=== PATIENT | male | born 1940 | race Caucasian/White ===

== ENCOUNTER → 2023-07-11 09:51 | Outpatient (REF) | payer MEDICARE, OTHER, SELFPAY ==
[2023-07-11 12:21] LABS: C-Reactive Protein < 5.00 mg/L (0.0-10.00)
[2023-07-11 13:06] LABS: Erythrocyte Sed Rate 15 mm/hour (0-20)
== END ==
LOC: HWLAB 09:51
PROVIDERS: ATTENDING PHYSICIAN Family Medicine
DX: M35.3 Polymyalgia rheumatica (principal)
CPT/HCPCS: 36415; 85652; 86140

== ENCOUNTER → 2023-09-12 12:05 | Outpatient (REF) | payer MEDICARE, OTHER, SELFPAY ==
[2023-09-12 15:20] LABS: C-Reactive Protein < 5.00 mg/L (0.0-10.00)
[2023-09-12 16:06] LABS: Erythrocyte Sed Rate 16 mm/hour (0-20)
== END ==
LOC: HWLAB 12:05
PROVIDERS: ATTENDING PHYSICIAN Family Medicine
DX: M35.3 Polymyalgia rheumatica (principal)
CPT/HCPCS: 36415; 85652; 86140

== ENCOUNTER → 2023-10-05 13:46 | Outpatient (REF) | payer MEDICARE, OTHER, SELFPAY | LOC: HWRAD 13:46 | PROVIDERS: ATTENDING PHYSICIAN Internal Medicine Cardiovascular Disease; FAMILY PHYSICIAN Family Medicine | DX: I25.10 Atherosclerotic heart disease of native coronary artery without angina pectoris (principal) | CPT/HCPCS: 93880 ==

== ENCOUNTER → 2023-10-25 06:39 | Day surgery (SDC) | payer MEDICARE, OTHER, SELFPAY | LOC: GI 06:39 | PROVIDERS: ATTENDING PHYSICIAN Specialist | DX: Z12.11 Encounter for screening for malignant neoplasm of colon (principal); D12.2 Benign neoplasm of ascending colon; D12.3 Benign neoplasm of transverse colon; K55.20 Angiodysplasia of colon without hemorrhage; K57.30 Diverticulosis of large intestine without perforation or abscess without bleeding; D12.8 Benign neoplasm of rectum; K64.8 Other hemorrhoids; K56.2 Volvulus; Z86.010 Personal history of colon polyps | CPT/HCPCS: 45380; 88305 ==

== ENCOUNTER → 2023-12-11 07:25 | Outpatient (REF) | payer MEDICARE, OTHER, SELFPAY ==
[2023-12-11 09:41] LABS: ALT (SGPT) 21 U/L (0-50); AST (SGOT) 30 U/L (17-59); Albumin 3.9 g/dl (3.5-5.0); Alkaline Phosphatase 64 U/L (38-126); Blood Urea Nitrogen 22 mg/dl (9-20); Calcium 9.2 mg/dl (8.4-10.2); Carbon Dioxide 27 mmol/L (22-30); Chloride 100 mmol/L (98-107); Glucose 94 mg/dl (70-99); HDL Cholesterol 70 mg/dl; LDL Cholesterol, Calculated 30 mg/dl; Potassium 4.2 mmol/L (3.5-5.1); Sodium 138 mmol/L (135-145); Total Bilirubin 0.7 mg/dl (0.2-1.3); Total Cholesterol 115 mg/dl (50-199); Total Protein 6.4 g/dl (6.3-8.2); Triglyceride 79 mg/dl (10-149); Very Low Density Lipoprotein 15 mg/dl (0-30); eGFR > 60.00
[2023-12-11 09:43] LABS: C-Reactive Protein < 5.00 mg/L (0.0-10.00)
[2023-12-11 10:30] LABS: Erythrocyte Sed Rate 21 mm/hour (0-20)
[2023-12-11 12:10] LABS: Glycohemoglobin (HgbA1c) 5.9 % (4.0-5.6)
== END ==
LOC: HWLAB 07:25
PROVIDERS: ATTENDING PHYSICIAN Family Medicine
DX: E78.2 Mixed hyperlipidemia (principal); M35.3 Polymyalgia rheumatica; R73.01 Impaired fasting glucose
CPT/HCPCS: 36415; 80053; 80061; 83036; 85652; 86140

== ENCOUNTER → 2024-03-19 11:59 | Outpatient (REF) | payer MEDICARE, OTHER, SELFPAY | LOC: CLAB 11:59 | PROVIDERS: ATTENDING PHYSICIAN Nurse Practitioner Family | DX: J02.9 Acute pharyngitis, unspecified (principal) | CPT/HCPCS: 87070 ==

== ENCOUNTER → 2024-04-03 09:14 | Outpatient (REF) | payer MEDICARE, OTHER, SELFPAY | LOC: RCS 09:14 | PROVIDERS: ATTENDING PHYSICIAN Nurse Practitioner; FAMILY PHYSICIAN Family Medicine | DX: I25.10 Atherosclerotic heart disease of native coronary artery without angina pectoris (principal) | CPT/HCPCS: 93225; 93226 ==

== ENCOUNTER → 2024-04-23 06:36 | Outpatient (REF) | payer MEDICARE, OTHER, SELFPAY ==
[2024-04-23 09:46] LABS: % Basophils 0.8 % (0-2); % Eosinophils 1.7 % (0-6); % Immature Granulocytes 0.4 % (0-0.5); % Lymphocytes 19.6 % (20.5-51.1); % Monocytes 12.3 % (1.7-9.3); % Neutrophils 65.2 % (42.2-75.2); Absolute Basophils 0.1 10^3/uL (0-0.2); Absolute Eosinophils 0.1 10^3/uL (0-0.7); Absolute Lymphocytes 1.5 10^3/uL (1.2-3.4); Absolute Neutrophils 5.1 10^3/uL (1.4-6.5); Hematocrit 43.3 % (39.0-52.0); Hemoglobin 14.1 g/dL (13.0-18.0); Mean Corp Hgb Conc. 32.6 g/dL (33.0-37.0); Mean Corpuscular Volume 98.4 fL (80.0-94.0); Mean Platelet Volume 10.3 fL (7.4-10.4); Nucleated Red Blood Cells % 0 % (-); Platelet Count 197 10^3/uL (130-400); Red Cell Dist. Width 13.2 % (11.5-14.5); White Blood Cell Count 7.8 10^3/uL (4.8-10.8)
[2024-04-23 10:05] LABS: ALT (SGPT) 17 U/L (0-50); AST (SGOT) 24 U/L (17-59); Albumin 3.9 g/dl (3.5-5.0); Alkaline Phosphatase 69 U/L (38-126); Blood Urea Nitrogen 26 mg/dl (9-20); Calcium 8.8 mg/dl (8.4-10.2); Carbon Dioxide 24 mmol/L (22-30); Chloride 100 mmol/L (98-107); Glucose 108 mg/dl (70-99); Potassium 4.3 mmol/L (3.5-5.1); Sodium 137 mmol/L (135-145); Total Bilirubin 1.1 mg/dl (0.2-1.3); Total Protein 6.7 g/dl (6.3-8.2); eGFR > 60.00
[2024-04-23 10:50] LABS: Erythrocyte Sed Rate 40 mm/hour (0-20)
== END ==
LOC: HWRCS 06:36
PROVIDERS: ATTENDING PHYSICIAN Nurse Practitioner; FAMILY PHYSICIAN Family Medicine
DX: I25.10 Atherosclerotic heart disease of native coronary artery without angina pectoris (principal); I48.0 Paroxysmal atrial fibrillation; I35.0 Nonrheumatic aortic (valve) stenosis; R53.83 Other fatigue; M35.3 Polymyalgia rheumatica
CPT/HCPCS: 36415; 80053; 84443; 85025; 85652; 86140; 93306

== ENCOUNTER 2024-04-25 06:57 | Day surgery (SDC) | payer MEDICARE, OTHER, SELFPAY ==
--- NOTE | 2024-04-25 09:51 | ITS.CL.CARDI ---
Physician Practice Consultant - Cardioversion
Cardioversion
Procedure Report:
Procedure: CATRACHITA-guided electrical cardioversion
Pre-operative diagnosis: Persistent atrial fibrillation
Post-operative diagnosis: Persistent atrial fibrillation status post DC cardioversion to sinus rhythm
Anesthesia: MAC
Attending Physician: Joe López MD
Procedure Description: The patient was brought to the electrophysiology laboratory in the fasting state. Informed consent was obtained from the patient prior to the start of the procedure. Adherence to anticoagulation was confirmed. Electrodes were
placed on the patient and connected to an external defibrillator. Monitoring of blood pressure, ECG tracings, and pulse oximetry was initiated. The pads were applied to the patient in the anterior and posterior positions. The patient was sedated by
the anesthesiologist. A CATRACHITA (reported separately) was performed prior to the cardioversion. No left atrial or left atrial appendage thrombus was seen. After the CATRACHITA probe was removed, a 200 joule biphasic synchronized shock was delivered to the
patient under MAC anesthesia. Sinus rhythm was successfully restored. The patient recovered uneventfully from MAC anesthesia. There were no immediate post-procedure complications. The patient left the lab in good condition. The attending physician
was present throughout the entire procedure.
Impression: Successful CATRACHITA-guided direct current cardioversion with yazdanism of sinus rhythm after one 200 joule biphasic synchronized shock.
== END 2024-04-25 09:18 | disposition home or self-care (01) ==
LOC: CATH 06:57
PROVIDERS: ATTENDING PHYSICIAN Nuclear Medicine Nuclear Cardiology; FAMILY PHYSICIAN Family Medicine; OTHER PHYSICIAN Nurse Practitioner
DX: I48.19 Other persistent atrial fibrillation (principal); I48.92 Unspecified atrial flutter; I25.10 Atherosclerotic heart disease of native coronary artery without angina pectoris; I10 Essential (primary) hypertension; E78.00 Pure hypercholesterolemia, unspecified; K21.9 Gastro-esophageal reflux disease without esophagitis; Z87.891 Personal history of nicotine dependence; Z79.82 Long term (current) use of aspirin; Z79.01 Long term (current) use of anticoagulants
CPT/HCPCS: 93312; 93320; 93325; 92960; 93005

== ENCOUNTER → 2024-07-09 07:34 | Outpatient (REF) | payer MEDICARE, OTHER, SELFPAY ==
[2024-07-09 10:06] LABS: C-Reactive Protein < 5.00 mg/L (0.0-10.00)
[2024-07-09 11:05] LABS: Erythrocyte Sed Rate 14 mm/hour (0-20)
== END ==
LOC: HWLAB 07:34
PROVIDERS: ATTENDING PHYSICIAN Family Medicine
DX: M35.3 Polymyalgia rheumatica (principal)
CPT/HCPCS: 36415; 85652; 86140

== ENCOUNTER 2024-08-28 12:42 | Emergency (ER) | payer MEDICARE, OTHER, SELFPAY ==
[2024-08-28 12:52] VITALS: BP 128/95
--- NOTE | 2024-08-28 14:39 | ED.MUSCINJ ---
HPI-Injury
General
Chief Complaint: Musculo-Skeletal Complaint
Source: patient
Exam Limitations: none
Time Seen by Provider: 08/28/24 14:25
History of Present Illness-Injury
Initial Injury comments:
84-year-old male [id number] on [place] presents after trip and fall today. Fell on his right shoulder. He did not hit his head. There was no loss of conscious. He denies a headache. He complains only of right shoulder pain. He has a
remote history of rotator cuff repair in the right shoulder. No other complaints at this time
Past History
Past History
ED Past Medical History: GERD and Other (Arthritis)
ED Past Surgical History: Appendectomy, Orthopedic (Arthroscopic knee surgery, right knee replacement, left knee replacement, right shoulder surgery, lumbar spine surgery) and Other (Hernia repair); Negative Cardiac or Cholecystectomy
Social History
Tobacco: Non-smoker
Alcohol: None
Drug: None
Personal:
Living: with family
Employment: Retired
Family History
Family History: Negative Early CAD
Phy Exam
Physical Exam
Physical Exam:
General: Well-appearing male no acute respiratory distress
HEENT: Normocephalic no scalp abrasion or hematoma pupils equal round reactive to light musculoskeletal exam: The cervical spine is nontender. He is tender about the anterior lateral aspect of the right shoulder. There is no deformity. Good
passive range of motion however active range of motion is limited. The elbow is nontender.
Skin is intact without laceration
Injury Course
Orders/Labs/Results
Orders:
Orders
08/28/24 12:58
Shoulder, Right, Trauma [CR Shoulder, Trauma - Right] Urgent
Comment:
Reason For Exam: pain after fall
08/28/24 14:39
Sling Right-Treatment ONCE
MDM/Problems Addressed
Differential Diagnosis Includes:
Fall with right shoulder pain. No head strike. Patient is on blood thinners however without evidence of trauma no head strike no headache head imaging at this point not indicated. X-rays of the right shoulder were obtained to evaluate for
fracture or dislocation. There is no fracture or dislocation. There may be a subtle subluxation secondary to potential intra-articular effusion. I suspect underlying shoulder strain. Sling applied. Will advise follow-up with his orthopedic team
for further evaluation
*Critical Care Note
Total Time (30-74mins, 75-104mins- exclusive of procedures): Not Applicable
ED Attending Note
-
Portions of this chart may have been created with voice recognition software.� Occasional wrong word or��sound alike� substitutions may have occurred due to the inherent limitations of voice recognition software.
Discharge Plan
Departure
Patient Disposition: Home (Routine Discharge)
Date of Disposition: 08/28/24
Time of Disposition: 14:45
Patient with high blood pressure during this ER visit?: No
Discharge Problem:
Right shoulder strain
Instructions: Muscle and Bone Pain (DC)
Prescriptions:
New
hydrocodone-acetaminophen 5-325 mg tablet
1 tab PO TID PRN (Reason: Pain) Qty: 10 0RF
No Action
ascorbic acid (vitamin C) [Vitamin C] 500 MG tablet
500 mg PO DAILY Qty: 0
famotidine 20 mg Tablet
20 mg PO DAILY
aspirin 81 mg Tablet
81 mg PO DAILY
metoprolol succinate 25 mg Tablet Extended Release 24 Hr
25 mg PO DAILY
finasteride 5 mg Tablet
5 mg PO DAILY
rosuvastatin 10 mg Tablet
10 mg PO DAILY
omeprazole 20 mg Tablet,Delayed Release (Dr/Ec)
20 mg PO DAILY
acetaminophen [Tylenol Extra Strength] 500 mg Tablet
1,000 mg PO .PRN BID-TID PRN (Reason: pain)
amoxicillin-pot clavulanate 875-125 mg tablet
1 tab PO BID Qty: 14 0RF
prednisone 5 mg Tablets,Dose Pack
7.5 mg PO DAILY
Referrals:
Kenneth Duron MD [Active] -
Mario Kinney MD [Family Provider] -
Activity Restrictions/Additional Instructions:
You may continue to ice for swelling. Use a sling for support. Use Tylenol if needed for pain. Use prescribed pain medicine as needed for severe pain. Follow-up with your orthopedic doctor for further evaluation
Interventions
Interventions:
*Risk Screen - Suicide Last Done: 08/28/24 12:52
*General Assessment Last Done: 08/28/24 12:52
*ED- Fall Risk Assessment Last Done: 08/28/24 14:01
*ED COVID-19 Vaccine History Last Done: 08/28/24 14:01
ED-Musculoskeletal Assessment Last Done: 08/28/24 14:01
Discharge Date and Time
Print Language: EQUATORIAL GUINEAN
== END 2024-08-28 14:55 | disposition home or self-care (01) ==
LOC: EMR 12:42
PROVIDERS: EMERGENCY PHYSICIAN Emergency Medicine; FAMILY PHYSICIAN Family Medicine
DX: S46.911A Strain of unspecified muscle, fascia and tendon at shoulder and upper arm level, right arm, initial encounter (principal); W01.0XXA Fall on same level from slipping, tripping and stumbling without subsequent striking against object, initial encounter; K21.9 Gastro-esophageal reflux disease without esophagitis; M19.90 Unspecified osteoarthritis, unspecified site; Z79.01 Long term (current) use of anticoagulants; Z90.49 Acquired absence of other specified parts of digestive tract; Z96.653 Presence of artificial knee joint, bilateral
CPT/HCPCS: 99283; 73030

== ENCOUNTER → 2024-09-10 07:21 | Outpatient (REF) | payer MEDICARE, OTHER, SELFPAY ==
[2024-09-10 09:42] LABS: Erythrocyte Sed Rate 28 mm/hour (0-20)
[2024-09-10 10:01] LABS: Urine Albumin 2+ (Neg - Trace); Urine Bilirubin Negative (Negative); Urine Character Clear (Clear); Urine Color Yellow; Urine Glucose Negative (Negative); Urine Ketone Negative (Negative); Urine Leukocyte 3+ (Negative); Urine Nitrite Negative (Negative); Urine Occult Blood 2+ (Negative); Urine Urobilinogen 2+ (Neg - 1+)
[2024-09-10 10:13] LABS: ALT (SGPT) 20 U/L (0-50); AST (SGOT) 24 U/L (17-59); Alkaline Phosphatase 62 U/L (38-126); Blood Urea Nitrogen 23 mg/dl (9-20); Calcium 8.7 mg/dl (8.4-10.2); Carbon Dioxide 25 mmol/L (22-30); Chloride 106 mmol/L (98-107); Glucose 99 mg/dl (70-99); HDL Cholesterol 58 mg/dl; LDL Cholesterol, Calculated 17 mg/dl; Potassium 4.2 mmol/L (3.5-5.1); Sodium 137 mmol/L (135-145); Total Bilirubin 1.1 mg/dl (0.2-1.3); Total Cholesterol 90 mg/dl (50-199); Total Protein 6.5 g/dl (6.3-8.2); Triglyceride 79 mg/dl (10-149); Very Low Density Lipoprotein 15 mg/dl (0-30); eGFR > 60.00
[2024-09-10 10:28] LABS: Urine Bacteria Few (Negative)
[2024-09-10 10:29] LABS: Urine White Cell 0-2 /HPF (0-5)
[2024-09-10 11:34] LABS: Glycohemoglobin (HgbA1c) 6.1 % (4.0-5.6)
== END ==
LOC: HWLAB 07:21
PROVIDERS: ATTENDING PHYSICIAN Family Medicine
DX: R73.01 Impaired fasting glucose (principal); E78.2 Mixed hyperlipidemia; M35.3 Polymyalgia rheumatica; R31.9 Hematuria, unspecified
CPT/HCPCS: 36415; 80053; 80061; 81003; 81015; 83036; 85652; 86140; 87077; 87086; 87088; 87186

== ENCOUNTER → 2024-09-11 09:31 | Outpatient (REF) | payer MEDICARE, OTHER, SELFPAY | LOC: HWRAD 09:31 | PROVIDERS: ATTENDING PHYSICIAN Orthopaedic Surgery Hand Surgery; FAMILY PHYSICIAN Family Medicine | DX: M25.511 Pain in right shoulder (principal) | CPT/HCPCS: 73200 ==

== ENCOUNTER → 2024-09-23 07:33 | Outpatient (REF) | payer MEDICARE, OTHER, SELFPAY ==
[2024-09-23 09:46] LABS: Urine Albumin 1+ (Neg - Trace); Urine Bilirubin Negative (Negative); Urine Character Clear (Clear); Urine Color Yellow; Urine Glucose Negative (Negative); Urine Ketone Negative (Negative); Urine Leukocyte Negative (Negative); Urine Nitrite Negative (Negative); Urine Occult Blood 1+ (Negative); Urine Urobilinogen Negative (Neg - 1+)
[2024-09-23 10:14] LABS: Urine Red Blood Cell 0-2 /HPF (0-2); Urine Squamous Cell 0-2 /LPF (Few)
== END ==
LOC: HWLAB 07:33
PROVIDERS: ATTENDING PHYSICIAN Family Medicine
DX: N39.0 Urinary tract infection, site not specified (principal)
CPT/HCPCS: 81003; 81015

== ENCOUNTER 2024-10-01 07:50 | Inpatient (IN) | payer MEDICARE, OTHER, SELFPAY ==
[2024-09-19 11:37] LABS: Hematocrit 39.2 % (39.0-52.0); Hemoglobin 13.3 g/dL (13.0-18.0); Mean Corp Hgb Conc. 33.9 g/dL (33.0-37.0); Mean Corpuscular Hgb 32.3 pg (27.0-31.0); Mean Corpuscular Volume 95.1 fL (80.0-94.0); Mean Platelet Volume 9.9 fL (7.4-10.4); Platelet Count 193 10^3/uL (130-400); Red Blood Cell Count 4.12 10^6/uL (4.70-6.10); Red Cell Dist. Width 13.2 % (11.5-14.5); White Blood Cell Count 9.6 10^3/uL (4.8-10.8)
[2024-09-19 11:59] LABS: ALT (SGPT) 18 U/L (0-50); AST (SGOT) 22 U/L (17-59); Alkaline Phosphatase 56 U/L (38-126); Blood Urea Nitrogen 25 mg/dl (9-20); Carbon Dioxide 24 mmol/L (22-30); Chloride 105 mmol/L (98-107); Glucose 103 mg/dl (70-99); Potassium 4.5 mmol/L (3.5-5.1); Sodium 135 mmol/L (135-145); Total Bilirubin 1.3 mg/dl (0.2-1.3); Total Protein 6.6 g/dl (6.3-8.2); eGFR > 60.00
[2024-09-19 14:10] VITALS: BMI 27.6
[2024-09-19 17:29] VITALS: BMI 27.6
--- NOTE | 2024-09-24 13:59 | CM ---
CM reviewed medical records. CM spoke with patient via live telephone. Patient confirmed demographics. Patient lives independently with . Patient has a history of VN, but is currently not on service. Patient does not have a history of SNF>
Patient plans to use [facility] and has an appointment scheduled for two weeks post operatively. Patient is active with his PCP and has medication coverage.
PLAN: home, with outpatient PT when medically cleared.
[2024-10-01] VITALS (15 sets, daily range): BP systolic 103–151; BP diastolic 64–107; PULSE 88; O2SAT 94; BMI 27.6
[2024-10-01] MEDS: NORMOSOL-R/PLASMALYTE-A 1000 IV ×2 (08:15→14:03)
[2024-10-01] MEDS: TYLENOL 1000 MG PO (08:15)
--- NOTE | 2024-10-01 10:03 | W.PN.UPDATE ---
Update Note
Progress Note Update
Traumatic complete tear of right rotator cuff s/p R Reverse TSA w/ Dr Duron 10/01/24
DVT prophylaxis - Xarelto at modified dosing, b/l venous foot pumps
- Home dosing of Xarelto to be resumed POD 3 if hemodynamically stable
CAD, status post PCI with QUINTIN to LAD 2018
PAF, status post CATRACHITA-guided CV 04/2024
- Monitor on tele
- Continue Metoprolol
- Xarelto as stated above
GERD, Hiatal hernia, Marquez's esophagus - continue PPI therapy, Pepcid
Chronic constipation - continue daily Miralax with bowel regimen of Colace and Senna
- Adequate hydration, the minimization of opioids, and early mobility as tolerated were discussed tanya-op
Polymyalgia rheumatica, steroid dependent - Prednisone taper post-op
Septic arthritis of right knee, s/p I&D 2017 - Doxycycline upon d/c
BPH - monitor voids
- Continue Finasteride
- Flomax prn
OA s/p R TKA, 2002, and L TKA, 2013, by Dr. Andres Parks
Mild to moderate valvular disease
Chronic dry cough
Colon and gastric polyps
Diverticulosis with remote diverticulitis
Lumbar degenerative disc disease.
Squamous cell carcinoma, status post excision
Remote history of tobacco abuse
Daily alcohol - 1 drink/daily reported
[2024-10-01] MEDS: DILAUDID 0.25 MG IV (12:00)
[2024-10-01] MEDS: PROTONIX 40 MG PO (14:04)
[2024-10-01] MEDS: ZYRTEC 10 MG PO (14:04)
[2024-10-01] MEDS: VITAMIN C 500 MG PO (14:04)
[2024-10-01] MEDS: TYLENOL PO (14:07)
--- NOTE | 2024-10-01 14:22 | PTCARENOTE ---
Pt arrived to [facility] at [facility] s/p R reverse TSA. Pt has 4x4 with metaphor tape on right shoulder C/D/I with a sling on. Pt 96% on 2L. Admission questions answered. Bed locked and in lowest position. Pt oriented to room and call arroyo within reach.
Care ongoing.
[2024-10-01] MEDS: FLOMAX 0.4 MG PO (15:22)
[2024-10-01] MEDS: TYLENOL 650 MG PO ×2 (15:22→21:46)
[2024-10-01] MEDS: XARELTO 10 MG PO (17:08)
[2024-10-01] MEDS: PROSCAR 5 MG PO (17:08)
[2024-10-01] MEDS: ANCEF 5 IV (17:08)
[2024-10-01] MEDS: PEPCID 20 MG PO (17:08)
[2024-10-01] MEDS: CRESTOR 10 MG PO (17:08)
[2024-10-01] MEDS: COLACE 100 MG PO (21:46)
[2024-10-01] MEDS: BACTROBAN 2% OINTMENT 1 APPLIC NASAL (21:46)
[2024-10-01] MEDS: SENOKOT 17.2 MG PO (21:46)
[2024-10-02] MEDS: ANCEF 5 IV (01:21)
[2024-10-02] MEDS: TYLENOL 650 MG PO ×3 (01:23→08:02)
[2024-10-02 03:00] VITALS: BP 105/70
[2024-10-02 07:00] VITALS: BP 119/86
[2024-10-02] MEDS: TOPROL XL 25 MG PO (07:57)
[2024-10-02] MEDS: PROTONIX 40 MG PO (07:58)
[2024-10-02] MEDS: SENOKOT 17.2 MG PO (07:58)
[2024-10-02] MEDS: VITAMIN C 500 MG PO (07:58)
[2024-10-02] MEDS: BACTROBAN 2% OINTMENT 1 APPLIC NASAL (07:59)
[2024-10-02] MEDS: DELTASONE 40 MG PO (07:59)
[2024-10-02] MEDS: MIRALAX 17 GRAMS PO (07:59)
[2024-10-02] MEDS: COLACE 100 MG PO (08:02)
[2024-10-02] MEDS: ZYRTEC 10 MG PO (08:02)
[2024-10-02 08:57] VITALS: BP 128/78; PULSE 100; O2SAT 99
--- NOTE | 2024-10-02 09:23 | W.PN.ORTHO ---
Today's Communication / Plan
-
Did well w/ OT.
D/c today since clinically stable.
Will reach out to surgeon re: removing dressing, when to bathe.
Assessment
.
Distal Motor Intact: Yes
Dressing:
Clean, dry and intact.
Assessment:
Traumatic complete tear of right rotator cuff s/p R Reverse GAMAL w/ Dr Duron 10/01/24
DVT prophylaxis - Xarelto at modified dosing, b/l venous foot pumps
- Home dosing of Xarelto to be resumed POD 3 if remaining hemodynamically stable
CAD, status post PCI with QUINTIN to LAD 2018
PAF, status post CATRACHITA-guided CV 04/2024
- Rhythm stable on tele. HR noted to be mildly elevated this AM but was due for BB. Also on Prednisone at baseline.
- Continue Metoprolol
- Xarelto as stated above
GERD, Hiatal hernia, Marquez's esophagus - continue PPI therapy, Pepcid
Chronic constipation - continue daily Miralax with bowel regimen of Colace and Senna
- Adequate hydration, the minimization of opioids, and early mobility as tolerated were discussed tanya-op
Polymyalgia rheumatica, steroid dependent - Prednisone taper post-op
Septic arthritis of right knee, s/p I&D 2018 - Doxycycline upon d/c
BPH - voiding appropriately w/ continuation Finasteride and Flomax x1 POD 0
OA s/p R TKA, 2002, and L TKA, 2013, by Dr. Andres Parks
Mild to moderate valvular disease
Chronic dry cough
Colon and gastric polyps
Diverticulosis with remote diverticulitis
Lumbar degenerative disc disease.
Squamous cell carcinoma, status post excision
Remote history of tobacco abuse
Daily alcohol - 1 drink/daily reported
Plan
.
Surgery / Date: R Lilli correa/ Dr Duron 10/01/24
DVT Prophylaxis: Other (Xarelto)
Activity:
Out of bed.
PT/OT
Discharge Plan: Home
Subjective
.
.:
Patient resting comfortably in his chair.
R shoulder pain overall well controlled w/ minimal pain meds.
Denies any new significant complaints.
Eager for potential d/c today.
Vital Signs and Labs
.
Vital Signs and Labs:
Lab Results
09/19/24 11:04
09/19/24 11:04
Temp Pulse Resp BP Pulse Ox
98.1 F 103 17 119/86 96
10/02/24 07:00 10/02/24 07:57 10/02/24 07:00 10/02/24 07:57 10/02/24 07:52
Non-invasive Hgb result: 13.1
Physical Exam
-
HEENT: No pallor, cyanosis, or jaundice. Throat clear.
NECK: Supple. No JVD.
RESPIRATORY: Lungs clear to auscultation.
CVS: S1, S2 normal. Irregular irregular.
ABDOMEN: Soft, non-tender. No distension.
EXTREMITIES: + RUE sling. [place], radial pulses b/l. Able to wiggle fingers b/l. Strength equal, no calf pain with palpation/dorsiflexion. Calves soft.
COUNTER CHECKER: AOx3. No focal deficits. undercoater grossly intact
--- NOTE | 2024-10-02 10:12 | W.DS.TRANS ---
DC Summary - Pharmacist Aide
-
Discharge Instructions:
Sleep Apnea Risk High
Discharge Diagnosis/Procedures Traumatic complete tear of right rotator cuff s/
p R Reverse TSA w/ Dr Duron 10/01/24
Diet Regular
Additional Diets Adequate hydration, minimize opioids, and wear
TEDs stockings to prevent low blood pressure/
dizziness.
Activity As tolerated
Additional Activity Non-weightbearing right upper extremity
Driving Restrictions Not until seen by your Dr
Bathing Restrictions OK to shower in 72 hours
Wound Care Leave dressing on until seen by surgeon's office
for a follow-up in 2 weeks.
Instructions:
Stand-Alone Forms: Total Shoulder Replacement D/C
Changes to Home Medications: Yes
Discharge Medications:
DC Medications w/original date entered in [facility]
ascorbic acid (vitamin C) 500 mg tablet (Vitamin C) 500 mg PO DAILY ##0 02/25/13
famotidine 20 mg tablet 20 mg PO QPM 03/24/22
finasteride 5 mg tablet 5 mg PO QPM 03/24/22
metoprolol succinate 25 mg tablet,extended release 24 hr 25 mg PO DAILY 03/24/22
omeprazole 20 mg tablet,delayed release 20 mg PO DAILY 03/24/22
rosuvastatin 10 mg tablet 10 mg PO QPM 03/24/22
cetirizine 10 mg tablet (Zyrtec) 10 mg PO DAILY 09/18/24
polyethylene glycol 3350 17 gram oral powder packet (Miralax) 17 g PO DAILY 09/18/24
rivaroxaban 20 mg tablet (Xarelto) 20 mg PO QPM 09/18/24
Held on 10/02/24. Instructions: Resume on 10/04/24.
mupirocin 2 % topical ointment 1 applic intranasal BID #1 tube 09/19/24
prednisone 10 mg tablet 10 mg PO DAILY 09/19/24
Held on 10/02/24. Instructions: Resume on 10/09/24.
Saccharomyces boulardii 250 mg capsule (Florastor) 250 mg PO BID #7 caps 10/02/24
acetaminophen 500 mg tablet (Tylenol Extra Strength) 1,000 mg (2 x 500 mg) PO Q6H #60 tabs 10/02/24
docusate sodium 100 mg capsule 100 mg PO BID #30 caps 10/02/24
doxycycline monohydrate 100 mg capsule 100 mg PO BID #7 caps 10/02/24
ondansetron HCl 4 mg tablet 4 mg PO Q6H PRN nausea and vomiting #30 tabs 10/02/24
prednisone 10 mg tablet 40 mg (4 x 10 mg) PO TAPER #18 tabs 10/02/24
rivaroxaban 10 mg tablet (Xarelto) 10 mg PO QPM #2 tabs 10/02/24
sennosides 8.6 mg tablet (Alesha-vikram) 17.2 mg (2 x 8.6 mg) PO BID #30 tabs 10/02/24
tramadol 50 mg tablet 50 - 100 mg (1 - 2 x 50 mg) PO Q6H PRN moderate-severe pain #30 tabs 10/02/24
Home Medication Changes
Saccharomyces boulardii 250 mg capsule (Florastor) 250 mg PO BID #7 caps 10/02/24
acetaminophen 500 mg tablet (Tylenol Extra Strength) 1,000 mg (2 x 500 mg) PO Q6H #60 tabs 10/02/24
docusate sodium 100 mg capsule 100 mg PO BID #30 caps 10/02/24
doxycycline monohydrate 100 mg capsule 100 mg PO BID #7 caps 10/02/24
ondansetron HCl 4 mg tablet 4 mg PO Q6H PRN nausea and vomiting #30 tabs 10/02/24
prednisone 10 mg tablet 40 mg (4 x 10 mg) PO TAPER #18 tabs 10/02/24 with transition back to 10 mg PO daily
rivaroxaban 10 mg tablet (Xarelto) 10 mg PO QPM #2 tabs 10/02/24
sennosides 8.6 mg tablet (Alesha-vikram) 17.2 mg (2 x 8.6 mg) PO BID #30 tabs 10/02/24
tramadol 50 mg tablet 50 - 100 mg (1 - 2 x 50 mg) PO Q6H PRN moderate-severe pain #30 tabs 10/02/24
Pending Results: No
--- NOTE | 2024-10-02 10:25 | CM ---
CM reviewed medical records.
PLAN: Home with outpatient PT when surgically cleared.
[2024-10-02 11:00] VITALS: BP 109/76
== END 2024-10-02 12:13 | disposition home or self-care (01) | DRG 483 ==
LOC: 2 SOUTH 07:50
PROVIDERS: ADMITTING PHYSICIAN Orthopaedic Surgery Hand Surgery; FAMILY PHYSICIAN Family Medicine; REFERRING PHYSICIAN Student in an Organized Health Care Education/Training Program
PROC: 0RRJ00Z Replacement of Right Shoulder Joint with Reverse Ball and Socket Synthetic Substitute, Open Approach (ICD-10-PCS; 2024-10-01)
PROC: 0RHJ04Z Insertion of Internal Fixation Device into Right Shoulder Joint, Open Approach (ICD-10-PCS; 2024-10-01)
PROC: 0LS30ZZ Reposition Right Upper Arm Tendon, Open Approach (ICD-10-PCS; 2024-10-01)
DX: S46.011A Strain of muscle(s) and tendon(s) of the rotator cuff of right shoulder, initial encounter (principal); I25.10 Atherosclerotic heart disease of native coronary artery without angina pectoris; Z95.5 Presence of coronary angioplasty implant and graft; I48.0 Paroxysmal atrial fibrillation; M35.3 Polymyalgia rheumatica; Z79.52 Long term (current) use of systemic steroids; K59.09 Other constipation; N40.0 Benign prostatic hyperplasia without lower urinary tract symptoms; Z79.01 Long term (current) use of anticoagulants; K21.9 Gastro-esophageal reflux disease without esophagitis; K44.9 Diaphragmatic hernia without obstruction or gangrene; K22.70 Barrett's esophagus without dysplasia; M51.369 Other intervertebral disc degeneration, lumbar region without mention of lumbar back pain or lower extremity pain; Z87.891 Personal history of nicotine dependence; M19.011 Primary osteoarthritis, right shoulder; Z91.040 Latex allergy status; Z96.653 Presence of artificial knee joint, bilateral
CPT/HCPCS: 36415; 73020; 80053; 85027; 87070; 97110; 97166; 97535; C1713; C1776

== ENCOUNTER 2024-11-04 09:33 | Day surgery (SDC) | payer MEDICARE, OTHER, SELFPAY ==
--- NOTE | 2024-11-04 11:07 | ITS.CL.CARDI ---
Cloth Finishing Range Tender - Cardioversion
Cardioversion
Procedure Report:
Date of Procedure: 11/04/24.
Procedure: Cardioversion.
Indication: Symptomatic atrial fibrillation.
Performing Physician: Jessica Judd MD
Technique: The patient was brought to the holding area. Signed informed consent was obtained. R-2 pads were placed anteriorly and posteriorly. A time out was called and performed. The patient was sedated by a member of the anesthesia service. CATRACHITA
was performed and did not show any evidence of intracardiac thrombus. Anticoagulation status was reviewed and was appropriate. A 200 J synchronized biphasic shock restored normal sinus rhythm without significant bradycardia. There were no
complications.
Conclusion: Uncomplicated cardioversion from atrial fibrillation to sinus rhythm.
Recommendation: Routine post cardioversion care. Continue shelter anticoagulation.
cc: Dr Downing
== END 2024-11-04 12:10 | disposition home or self-care (01) ==
LOC: CATH 09:33
PROVIDERS: ATTENDING PHYSICIAN Internal Medicine Cardiovascular Disease; FAMILY PHYSICIAN Family Medicine; OTHER PHYSICIAN Student in an Organized Health Care Education/Training Program
DX: I48.0 Paroxysmal atrial fibrillation (principal); I08.3 Combined rheumatic disorders of mitral, aortic and tricuspid valves; I25.10 Atherosclerotic heart disease of native coronary artery without angina pectoris; E78.2 Mixed hyperlipidemia; K21.9 Gastro-esophageal reflux disease without esophagitis; Z79.01 Long term (current) use of anticoagulants
CPT/HCPCS: 93312; 93320; 93325; 92960; 93005

== ENCOUNTER → 2024-12-10 07:27 | Outpatient (REF) | payer MEDICARE, OTHER, SELFPAY ==
[2024-12-10 09:40] LABS: Hematocrit 40.8 % (39.0-52.0); Hemoglobin 13.6 g/dL (13.0-18.0); Mean Corp Hgb Conc. 33.3 g/dL (33.0-37.0); Mean Corpuscular Volume 95.8 fL (80.0-94.0); Nucleated Red Blood Cells % 0 % (-); Platelet Count 165 10^3/uL (130-400); Red Cell Dist. Width 14.0 % (11.5-14.5)
[2024-12-10 10:32] LABS: C-Reactive Protein < 5.00 mg/L (0.0-10.00)
== END ==
LOC: HWLAB 07:27
PROVIDERS: ATTENDING PHYSICIAN Family Medicine
DX: M35.3 Polymyalgia rheumatica (principal)
CPT/HCPCS: 36415; 85025; 85652; 86140

== ENCOUNTER → 2025-02-03 07:19 | Outpatient (REF) | payer MEDICARE, OTHER, SELFPAY ==
[2025-02-03 10:48] LABS: Hematocrit 39.7 % (39.0-52.0); Hemoglobin 13.1 g/dL (13.0-18.0); Mean Corp Hgb Conc. 33.0 g/dL (33.0-37.0); Mean Corpuscular Volume 97.3 fL (80.0-94.0); Nucleated Red Blood Cells % 0 % (-); Platelet Count 168 10^3/uL (130-400); Red Cell Dist. Width 13.6 % (11.5-14.5)
[2025-02-03 10:50] LABS: ALT (SGPT) 25 U/L (0-50); AST (SGOT) 31 U/L (17-59); Albumin 3.9 g/dl (3.5-5.0); Alkaline Phosphatase 73 U/L (38-126); Blood Urea Nitrogen 19 mg/dl (9-20); Calcium 9.1 mg/dl (8.4-10.2); Carbon Dioxide 27 mmol/L (22-30); Chloride 103 mmol/L (98-107); Glucose 96 mg/dl (70-99); HDL Cholesterol 69 mg/dl; LDL Cholesterol, Calculated 21 mg/dl; Potassium 3.9 mmol/L (3.5-5.1); Sodium 132 mmol/L (135-145); Total Protein 6.6 g/dl (6.3-8.2); Very Low Density Lipoprotein 17 mg/dl (0-30); eGFR > 60.00
[2025-02-03 10:57] LABS: C-Reactive Protein < 5.00 mg/L (0.0-10.00)
== END ==
LOC: HWLAB 07:19
PROVIDERS: ATTENDING PHYSICIAN Family Medicine
DX: M35.3 Polymyalgia rheumatica (principal); E78.2 Mixed hyperlipidemia
CPT/HCPCS: 36415; 80053; 80061; 85025; 85652; 86140